=== PATIENT | male | born 1965 | race Caucasian/White ===

== ENCOUNTER 2016-09-08 05:47 | Day surgery (SDC) | payer OTHER ==
[2016-09-05 12:54] VITALS: BMI 28.6
[2016-09-08] MEDS ORDERED: BUPIVACAINE HCL/PF 2.5 MG/ML - 30 ML VIAL IJ ONE (07:03)
[2016-09-08] MEDS ORDERED: EPINEPHrine 1:1,000 1 MG/1 ML - 30ML VIAL (INJECTION) ONE (07:03)
[2016-09-08] MEDS ORDERED: MIDAZOLAM HCL 2 MG/2 ML SINGLE DOSE VIAL ONE (07:21)
[2016-09-08] MEDS ORDERED: SUCCINYLCHOLINE CHLORIDE 200 MG/10 ML VIAL ONE (07:25)
[2016-09-08] MEDS ORDERED: PROPOFOL 20 ML ONE ×3 (07:25→07:59)
[2016-09-08] MEDS ORDERED: ceFAZolin SODIUM 1 GM VIAL ONE (08:04)
[2016-09-08] MEDS ORDERED: DEXAMETHASONE SOD PHOSPHATE 4 MG/1 ML VIAL ONE (08:09)
[2016-09-08] MEDS ORDERED: ONDANSETRON 4 MG/2 ML VIAL ONE (08:09)
[2016-09-08] MEDS ORDERED: DESFLURANE GAS 240 ML BOTTLE IH ONE (08:18)
[2016-09-08] MEDS ORDERED: BUPIVACAINE HCL/PF 0.25% (2.5MG/ML) 10 ML VIAL IJ ONE (08:24)
[2016-09-08] MEDS ORDERED: LACTATED RINGERS SOLUTION 1,000 ML IV SCH (09:00)
[2016-09-08] MEDS ORDERED: oxyCODONE HCL 5 MG TABLET PO PRN (09:20)
[2016-09-08] MEDS ORDERED: ONDANSETRON 4 MG/2 ML VIAL IVPUSH PRN (09:20)
[2016-09-08 10:18] VITALS: TEMP 97.8
[2016-09-08 10:43] VITALS: BP 132/74; PULSE 58
--- NOTE | 2016-09-10 21:28 | OP ---
DATE OF OPERATION: 09/08/2016 LOCATION: [facility] SURGEON: Francisco Bush MD BEATER TENDER: LYNNE Bennett PREOPERATIVE DIAGNOSES: 1. Left knee medial and lateral meniscal tear. 2. Left knee cartilage injury. 3. Left knee synovitis. POSTOPERATIVE DIAGNOSES: 1. Left knee medial and lateral meniscal tear. 2. Left knee cartilage injury. 3. Left knee synovitis. PROCEDURE: 1. Left knee arthroscopy with partial meniscectomy of medial and lateral menisci. 2. Left knee arthroscopy with chondroplasty and abrasion plasty. 3. Left knee arthroscopy with synovectomy (major). CPT CODES: 01140, 43728, [id number]. FINDINGS: 1. Medial meniscus body and posterior horn tear. 2. Lateral meniscus posterior horn tear. 3. Synovitis of patellofemoral, medial and lateral notch area. 4. Anterior grade 2 to 4 cartilage injury, medial tibial plateau. 5. Central grade 2 cartilage injury, medial femoral condyle. 6. ACL and PCL intact. 7. Diffuse grade 1 to 2 cartilage injury, lateral joint. 8. Central grade 2 to 3 cartilage injury, patella, with 2 to 4 changes of patellofemoral trochlea. 9. Large loose body, osteochondral fragment, 4 cm x 4 cm in length. PROCEDURE: Informed consent was obtained. The patient was taken to the operating room where the left lower extremity was prepped and draped in a sterile fashion. A tourniquet was placed on the left upper thigh but not inflated. Using standard arthroscopic technique, a lateral incision and portal were made which allowed for introduction of the camera into the suprapatellar bursa. This was then taken to the medial joint line where under direct visualization, a medial incision and portal were made. Excessive synovium noted in the medial, lateral, patellofemoral and notch area was removed by the up-biting shaver and Bovie cautery. This was found to bring inflammatory tissue into the joint surface, a source of joint pain and dysfunction. Probing of the medial and lateral meniscus found tears described in the findings. These were removed with an up-biting shaver and taken back to a stable rim. Grade 2-3 degenerative changes were treated with chondroplasty, removing all flaking surfaces with low setting Bovie used along the periphery. Grade 4 changes were treated with abrasion-plasty. All areas of the knee were once again re-examined. The knee was then drained. A single suture was placed on all portals. Sterile dressing was placed. The patient was transferred to the recovery room. ADDENDUM: Patient noted to have a large loose body, which was based on radiographic and history. Accessory incision was made on the superior lateral portion of the joint. This was approximately 4 cm in length. A hemostat was then placed into the wound, allowing for removal. This was closed with 2-0 Vicryl and 3-0 nylon. A sterile dressing was placed over the entire knee. FRANCISCO BUSH M.D. [id number]
--- NOTE | 2016-09-13 15:44 | PATH ---
Surgical Pathology Report Patient Name: KB DANIELLE [facility]. Rec. #: [id number] /Age/Gender: 1965 (Age: 51) / M Account: [id number] Location: [facility] Taken: 09/08/2016 Received: 09/08/2016 Reported: 09/13/2016 Physicians: Candelario Gross M.D. Specimen(s) Received LEFT KNEE SHAVINGS + LOOSE BODY Clinical History Internal bodies left knee, internal derangement Final Diagnosis KNEE, LEFT, LOOSE BODY AND ARTHROSCOPIC SHAVINGS: LOOSE BODY, FIBROSYNOVIAL TISSUE, CARTILAGE AND SCANT BONE. Electronically Signed Shelley Wick M.D. Gross Description Received in formalin labeled "left knee shavings and loose body," is a 3.0 x 2.2 x 1.3 cm smallwood, calcified portion of cartilage and possible bone, consistent with a loose body. Also received within the same container is a 2.5 x 2.0 x 0.3 cm aggregate of smallwood-yellow soft tissue fragments. Library Consultant sections are submitted in 2 cassettes as follows: 1-reimbursement representative loose body, following decalcification; 2-entirely submitted soft tissue fragments. /09/11/2016 saudi09/11/2016
== END 2016-09-08 10:45 | disposition home or self-care (01) ==
LOC: FASU 05:47
PROVIDERS: ATTEND Orthopaedic Surgery
PROC: 0SBD4ZZ Excision of Left Knee Joint, Percutaneous Endoscopic Approach (ICD-10-PCS; 2016-09-08)
PROC: 0SBD4ZZ Excision of Left Knee Joint, Percutaneous Endoscopic Approach (ICD-10-PCS; 2016-09-08)
PROC: 0SBD4ZZ Excision of Left Knee Joint, Percutaneous Endoscopic Approach (ICD-10-PCS; principal; 2016-09-08 08:14)
DX: S83.242A Other tear of medial meniscus, current injury, left knee, initial encounter (principal); S83.282A Other tear of lateral meniscus, current injury, left knee, initial encounter; S83.8X2A Sprain of other specified parts of left knee, initial encounter; M65.862 Other synovitis and tenosynovitis, left lower leg; X58.XXXA Exposure to other specified factors, initial encounter; Y93.9 Activity, unspecified; Y92.9 Unspecified place or not applicable
CPT/HCPCS: 88304-TC; 94760

== ENCOUNTER 2022-07-07 06:12 | Day surgery (SDC) | payer OTHER ==
[2022-06-29 12:24] VITALS: BMI 29.6
[2022-07-07] MEDS ORDERED: MIDAZOLAM HCL 2 MG/2 ML SINGLE DOSE VIAL ONE (07:14)
[2022-07-07] MEDS ORDERED: PROPOFOL 80 ML ONE (07:14)
[2022-07-07] MEDS ORDERED: ROPIVACAINE HCL 0.5% 30ML VIAL ONE (07:19)
[2022-07-07] MEDS ORDERED: EPINEPHrine 1:1,000 1,000 MCG/ML ML ONE (07:25)
[2022-07-07] MEDS ORDERED: oxyCODONE HCL 5 MG TABLET PO PRN (09:54)
[2022-07-07] MEDS ORDERED: ONDANSETRON 4 MG/2 ML VIAL IVPUSH PRN (09:54)
[2022-07-07] MEDS ORDERED: LACTATED RINGERS SOLUTION 1,000 ML IV SCH (10:00)
[2022-07-07 11:59] VITALS: RESP 16; TEMP 97.9
[2022-07-07 13:12] VITALS: BP 146/83; PULSE 82
== END 2022-07-07 12:45 | disposition home or self-care (01) ==
LOC: FASU 06:12
PROVIDERS: ATTEND Orthopaedic Surgery
PROC: 0LS34ZZ Reposition Right Upper Arm Tendon, Percutaneous Endoscopic Approach (ICD-10-PCS; 2022-07-07)
PROC: 0PB94ZZ Excision of Right Clavicle, Percutaneous Endoscopic Approach (ICD-10-PCS; 2022-07-07)
PROC: 0RNJ4ZZ Release Right Shoulder Joint, Percutaneous Endoscopic Approach (ICD-10-PCS; principal; 2022-07-07 09:06)
DX: M75.101 Unspecified rotator cuff tear or rupture of right shoulder, not specified as traumatic (principal); M66.811 Spontaneous rupture of other tendons, right shoulder; M75.01 Adhesive capsulitis of right shoulder; M75.41 Impingement syndrome of right shoulder; M19.011 Primary osteoarthritis, right shoulder; S43.431A Superior glenoid labrum lesion of right shoulder, initial encounter; X58.XXXA Exposure to other specified factors, initial encounter; Y93.9 Activity, unspecified; Y92.9 Unspecified place or not applicable
CPT/HCPCS: 82962; 94760; C1713

== ENCOUNTER 2023-04-12 08:23 | Day surgery (SDC) | payer OTHER, BC ==
[2023-04-03 16:18] VITALS: BMI 30.1
[2023-04-12] MEDS ORDERED: MIDAZOLAM HCL 2 MG/2 ML SINGLE DOSE VIAL ONE (11:58)
[2023-04-12] MEDS ORDERED: PROPOFOL 20 ML ONE (11:59)
[2023-04-12] MEDS ORDERED: ONDANSETRON 4 MG/2 ML VIAL ONE (12:25)
[2023-04-12] MEDS ORDERED: KETOROLAC TROMETHAMINE 30 MG/1 ML VIAL ONE (12:25)
[2023-04-12] MEDS ORDERED: ACETAMINOPHEN 325 MG TABLET (FP) PO PRN (13:26)
[2023-04-12] MEDS ORDERED: ONDANSETRON 4 MG/2 ML VIAL IVPUSH PRN (13:26)
[2023-04-12] MEDS ORDERED: oxyCODONE HCL 5 MG TABLET PO PRN (13:26)
[2023-04-12] MEDS ORDERED: LACTATED RINGERS SOLUTION 1,000 ML IV SCH (13:30)
[2023-04-12 15:08] VITALS: TEMP 97.9
[2023-04-12 15:13] VITALS: BP 137/88; PULSE 75; RESP 19
== END 2023-04-12 14:40 | disposition home or self-care (01) ==
LOC: FASU 08:23
PROVIDERS: ATTEND Orthopaedic Surgery
PROC: 0LQ30ZZ Repair Right Upper Arm Tendon, Open Approach (ICD-10-PCS; principal; 2023-04-12 12:30)
DX: S46.311A Strain of muscle, fascia and tendon of triceps, right arm, initial encounter (principal); S46.391A Other injury of muscle, fascia and tendon of triceps, right arm, initial encounter; X58.XXXA Exposure to other specified factors, initial encounter; Y92.9 Unspecified place or not applicable; Y93.9 Activity, unspecified
CPT/HCPCS: 24342; C1713; 88304-TC; 88311-TC; 94760

== ENCOUNTER 2024-12-10 06:02 | Day surgery (SDC) | payer BC ==
[2024-12-03 11:11] VITALS: BMI 28.8
[2024-12-10] MEDS ORDERED: PROPOFOL 80 ML ONE (07:01)
[2024-12-10] MEDS ORDERED: MIDAZOLAM HCL 2 MG/2 ML SINGLE DOSE VIAL ONE (07:01)
[2024-12-10] MEDS ORDERED: LIDOCAINE HCL/PF 2% SDV 5ML VIAL ONE (07:01)
[2024-12-10] MEDS ORDERED: ONDANSETRON 4 MG/2 ML VIAL ONE (07:01)
[2024-12-10] MEDS ORDERED: SUCCINYLCHOLINE CHLORIDE 200 MG/10 ML SYRINGE ONE (07:14)
[2024-12-10] MEDS ORDERED: BUPIVACAINE HCL/EPINEPHRINE/PF 30 ML VIAL IJ ONE (07:14)
[2024-12-10] MEDS ORDERED: DEXMEDETOMIDINE HCL 200 MCG/2 ML IVPB ONE (07:24)
[2024-12-10] MEDS ORDERED: ACETAMINOPHEN INJECTION 100 ML ONE (07:25)
[2024-12-10] MEDS ORDERED: FAMOTIDINE 20 MG/50 ML IVPB 20 MG/50 ML MG IVPB ONE (07:28)
[2024-12-10] MEDS ORDERED: FENTANYL CITRATE/PF 50 MCG/ML VIAL ONE (09:03)
[2024-12-10] MEDS ORDERED: ONDANSETRON 4 MG/2 ML VIAL IVPUSH PRN (09:16)
[2024-12-10] MEDS ORDERED: LACTATED RINGERS SOLUTION 1,000 ML IV SCH (09:30)
[2024-12-10 16:22] VITALS: TEMP 97.6
[2024-12-10 16:34] VITALS: BP 122/70; PULSE 65; RESP 16
== END 2024-12-10 11:45 | disposition home or self-care (01) ==
LOC: FASU 06:02
PROVIDERS: ATTEND Orthopaedic Surgery
PROC: 0SQC4ZZ Repair Right Knee Joint, Percutaneous Endoscopic Approach (ICD-10-PCS; principal; 2024-12-10 07:53)
DX: S83.241A Other tear of medial meniscus, current injury, right knee, initial encounter (principal); X58.XXXA Exposure to other specified factors, initial encounter; Y92.9 Unspecified place or not applicable; Y93.9 Activity, unspecified
CPT/HCPCS: 82962; 94760